=== PATIENT | female | born 1955 | race Two or more races ===

== ENCOUNTER 2025-10-17 23:56 | Emergency (ER) | payer MEDICARE, SELFPAY ==
[2025-10-17 23:58] VITALS: BMI 22.2
[2025-10-18 00:13] VITALS: BP 157/86; PULSE 91; RESP 18; TEMP 36.7; O2SAT 100
--- NOTE | 2025-10-18 00:27 | PD.EDRME ---
Rapid Medical Screening Exam RME Arrival date/time: 10/17/25 23:56 69F with no significant PMH presents to ED with N/V and epigastric pain after eating dinner. Chief Complaint: Nausea/Vomiting/Diarrhea Time Seen by Provider: 10/18/25 00:14 Vital signs: Vital Signs Temperature 98.1 F 10/18/25 00:13 Pulse Rate 91 10/18/25 00:13 Respiratory Rate 18 10/18/25 00:13 Blood Pressure 157/86 H 10/18/25 00:13 Pulse Oximetry (%) 100 10/18/25 00:13 Oxygen Delivery Method Room Air 10/18/25 00:13 Exam: Appears to be in pain. Actively having N/V. No ab tenderness. Clinical Impression: gastroenteritis vs food poisoning vs biliary disease vs pancreatitis
[2025-10-18 01:17] LABS: Basophils # (Auto) 0.1 Thou/mm3 (0.0-0.2); Basophils % (Auto) 1 % (0-2.5); Eosinophils # (Auto) 0.1 Thou/mm3 (0.0-0.5); Eosinophils % (Auto) 0 % (0-10); Hematocrit 42.1 % (36.0-46.0); Hemoglobin 13.7 g/dL (12.0-16.0); Immature Granulocytes Auto 0.04 Thou/mm3 (0.00-0.00); Lymphocytes # (Auto) 1.3 Thou/mm3 (1.0-4.8); Lymphocytes % (Auto) 10 % (10-50); Mean Corpuscular HGB Conc 32.5 g/dl (31.0-37.0); Mean Corpuscular Hemoglobin 29.7 pg (25.0-35.0); Mean Corpuscular Volume 91 fL (80-100); Monocytes # (Auto) 0.6 Thou/mm3 (0.0-0.8); Monocytes % (Auto) 5 % (0-12); Neutrophils # (Auto) 10.8 Thou/mm3 (1.8-7.7); Neutrophils % (Auto) 84 % (37-80); Nucleated Red Blood Cell # 0.00 Thou/mm3 (0.00-0.00); Nucleated Red Blood Cell % 0 /100 WBC (0); Platelet Count 343 Thou/mm3 (140-440); RDW Standard Deviation 42.5 fL (36.4-46.3); Red Blood Count 4.62 Miln/mm3 (4.00-5.20); White Blood Count 12.8 Thou/mm3 (3.6-11.0)
[2025-10-18] MEDS: SODIUM CHLORIDE 0.9% 1000 ML 1,000 ML 999 ML IV (01:27)
[2025-10-18] MEDS: ONDANSETRON INJ 2 MG/ML INJ 2 ML 4 MG IVP (01:31)
[2025-10-18 01:38] LABS: Alanine Aminotransferase 11 U/L (10-49); Albumin, Serum 4.9 gm/dL (3.4-4.8); Albumin/Globulin Ratio 2.0 (1.2-2.2); Alkaline Phosphatase 66 U/L (46-116); Anion Gap 10 (7-16); Aspartate Amino Transferase 21 U/L (0-34); BUN/Creatinine Ratio 15 Ratio (12-20); Bilirubin,Total 0.7 mg/dL (0.3-1.2); Blood Urea Nitrogen 9 mg/dL (9-23); Calcium 9.6 mg/dL (8.3-10.6); Calcium (Corrected) 9.6 mg/dL (8.5-10.1); Carbon Dioxide 30.9 mMol/L (20.0-31.0); Chloride 105 mMol/L (98-107); Creatinine (Component) 0.6 mg/dL (0.6-1.3); Estimated Creatinine Clearance 61.2 mL/min (>60); Globulin 2.4 gm/dL (2.3-3.5); Glucose 112 mg/dL (74-106); Lipase 30 U/L (12-53); Magnesium 2.1 mg/dL (1.6-2.6); Osmolality,Calculated 290 (275-295); Potassium 3.2 mMol/L (3.4-5.1); Sodium 146 mMol/L (136-145); Total Protein 7.3 gm/dL (5.7-8.2); eGFR > 60 See Note
--- NOTE | 2025-10-18 02:22 | EDNOTE_ITS ---
Nausea/Vomit./Diarrhea-RME/HPI General Chief complaint: Nausea/Vomiting/Diarrhea Stated complaint: VOMITING SINCE EATING Time Seen by Provider: 10/18/25 00:14 Arrival date/time: 10/17/25 23:56 RME / HPI RME / HPI Narrative: 10/17/25 23:56 69F with no significant PMH presents to ED with N/V and epigastric pain after eating dinner. DR. MELGAR MAIN ED EVALUATION: Patient presents with sudden onset nausea and associated multiple bouts of non- bloody emesis approximately 30 minutes s/p eating a home-prepared meal. Denies any diarrhea, although reports abdominal cramping. Other family members who consumed the same meal also experience gastric upset. PMH: Unremarkable for DM, Asthma, and HTN, No primary intestinal disorders PSH: Non-contributory Allergies: Social: No tobacco, Alcoholism, or illicit drug abuse Exam: Appears to be in pain. Actively having N/V. No ab tenderness. Impression: gastroenteritis vs food poisoning vs biliary disease vs pancreatitis Related Data Previous Rx's ?Medication ?Instructions ?Recorded acetaminophen 300 mg-codeine 15 mg 1 tab PO Q8H PRN pa in #20 tabs 10/18/25 tablet docusate sodium 100 mg capsule 100 mg PO BID #30 caps 10/18/25 (Colace) hydrocortisone acetate 25 mg 25 mg TX QDAY #12 ea 05/07 rectal suppository (Anusol-HC) loperamide 2 mg capsule (Imodium 2 mg PO TID diarrhea #10 caps 10/18/25 A-D) promethazine 12.5 mg tablet 12.5 mg PO TID PRN nausea and 10/18/25 vomiting #14 tabs Allergies Allergy/AdvReac Type Severity Reaction Status Date / Time No Known Allergies Allergy Verified 10/17/25 23:57 Review of Systems Review of Systems Systems Reviewed: All systems reviewed, normal except as documented ED Exam Narrative Physical exam: Patient underwent exam following treatment in ED which included IV fluid hydration, anti-emetics, and PPI therapy. Reports overall improvement. GEN. APPEARANCE: The patient is alert awake oriented X-3 under no distress, lying down comfortably, does not look ill/toxic. Patient has good eye contact. Patient is cooperative. VITALS: All vitals were reviewed and the pulse ox is 97%, which is normal according to my interpretation HEENT: Normocephalic, atraumatic and nontender. Pupils are equal and reactive. Oral mucosa is moist. NECK: Supple, nontender, no meningismus, no JVD. There is no thyromegaly and no lymphadenopathy. CHEST: Nontender on palpation no deformity and no crepitus. CARDIOVASCULAR: Heart regular rhythm, no murmur or gallop rub or extra beats. LUNGS: Clear to auscultation bilaterally with symmetrical chest rise. No laboring tachypnea or wheezing. No intercostal subcostal retraction. No rales and no rhonchi. ABDOMEN: Soft, flat, nontender to palpation, no guarding or rebound tenderness. There are no abnormal masses palpated. No pulsatile masses or bruits. Active and normal bowel sounds. EXTREMITIES: Normal inspection and palpation. No edema. No cyanosis. Patient is able to move all 4 extremities well SKIN: Warm and dry, no rashes noted. MUSCULOSKELETAL: No lumbar or midline bony tenderness. There is no CVA tenderness. No paraspinal muscle spasm or tenderness. NEURO: Cranial nerves II through XII grossly intact. There are no focal neurologic deficits noted. GCS is 15 PSYCHIATRIC: Patient is in normal mood and affect, cooperative. LYMPHATICS: No major lymphadenopathy noted. Course Quality Measures none Orders Category Date Time Status Blood glucose [Bedside Blood Glucose] NOW Care 10/17/25 23:59 Completed Insert IV NOW Care 10/18/25 00:26 Completed CBC Stat Lab 10/18/25 01:09 Completed CMP [Comprehensive Metabolic Panel] Stat Lab 10/18/25 01:09 Completed Lipase Stat Lab 10/18/25 01:09 Completed Mag [Magnesium] Stat Lab 10/18/25 01:09 Completed Ondansetron Inj [Zofran Inj] Med 10/18/25 00:27 Discontinued 4 mg IVP X1 ONE Pantoprazole Inj [Protonix Inj] Med 10/18/25 00:26 Discontinued 40 mg IVP X1 ONE Sodium Chloride 0.9% 1000 ml [Ns] 1,000 ml Med 10/18/25 00:26 Discontinued IV 999 mls/hr cefTRIAXone/D5w 1gm IV premix [Rocephin/D5w 1gm IV Med 10/18/25 02:02 Discontinued premix] 1 gm in 50 ml IV X1 Vital Signs Vital signs: Vital Signs Temperature 98.1 F 10/18/25 00:13 Pulse Rate 91 10/18/25 00:13 Respiratory Rate 18 10/18/25 00:13 Blood Pressure 157/86 H 10/18/25 00:13 Pulse Oximetry (%) 100 10/18/25 00:13 Oxygen Delivery Method Room Air 10/18/25 00:13 Nausea/Vomiting/Diarrhea MDM Narrative MDM Narrative:: Scribe Attestation: IMaritza, am scribing for and in the presence of Dr. Jackman. Provider Notation: Although this document has been carefully reviewed, there may still be some phonetic and other typographical errors. These errors are purely grammatical due to imperfections in the software program and should not be construed in any way to compromise the substance of the patient's medical care during this visit. Patient presents with sudden onset nausea and associated multiple bouts of non- bloody emesis approximately 30 minutes s/p eating a home-prepared meal. Denies any diarrhea, although reports abdominal cramping. Please see PE findings. Laboratory markers demonstrated WBC of 128, normal hemoglobin and platelet count with slight left shift without bandemia. Serum chemistries demonstrated a slightly low Potassium of 3.2, but were otherwise unremarkable. Patient was hydrated with normal saline to control volume deficit, treated with both anti- emetics, and PPI. With presentation, suspect food poisoning. Will recommend clear liquid diet, f/u with PMD with pprecautionary instructions issued. Patient data External records reviewed:: [facility] previous records (No prior ED record available for review) Clinical information provided by:: patient Social determinants that could affect healthcare access:: none Patient has the following chronic illnesses:: None reported How is presenting disease/condition affected by chronic disease/condition?: no chronic disease Evaluation data The following diagnostics were reviewed and interpreted by me:: lab results Lab and/or radiology exams considered but not ordered:: None Interpretation Summary: See MDM above Medications / Prescriptions Medications / Prescriptions considered but not ordered:: None Medication administrations:: Medication Administration History Discontinued Medications Sodium Chloride (Ns) 1,000 mls @ 999 mls/hr IV .Q1H1M ONE Stop: 10/18/25 01:26 Last Infusion: 10/18/25 02:05 Dose: Infused Documented By: Admin: 10/18/25 01:27 Dose: 999 mls/hr Documented By: SE Ceftriaxone Sodium/Dextrose (Rocephin/D5w 1gm Iv Premix) 1 gm in 50 mls @ 100 mls/hr IV X1 ONE Stop: 10/18/25 02:31 Last Admin: 10/18/25 02:20 Dose: Not Given Documented By: SE Non-Admin Reason: Cancelled by Provider Ondansetron HCl (Ondansetron Inj 2 Mg/Ml Inj 2 Ml) 4 mg IVP X1 ONE; Protocol Stop: 10/18/25 00:28 Last Admin: 10/18/25 01:31 Dose: 4 mg Documented By: SE Pantoprazole Sodium (Pantoprazole Inj 40 Mg Vial) 40 mg IVP X1 ONE Stop: 10/18/25 00:27 Last Admin: 10/18/25 01:32 Dose: 40 mg Documented By: SE See above if any Consultations Consultation(s) initiated? (list below): No Diagnosis Nausea Differential Diagnosis: food poisoning, gastroenteritis, clostridium difficile infection, drug-induced nausea and vomiting and dehydration Most likely diagnosis given after review of the tests above:: Food Poisoning, Dehydration Admission Indicated Admission indicated?: not indicated Explain why admission is indicated or not indicated:: Patient does not meet admission criteria Admission Request Was there a request for admission?: No Disposition Plan Disposition Plan: Discharge Discharge Attestation Discharge Attestation: The patient and all family members were given an opportunity to ask questions and understood the discharge instructions. Discharge instructions specifically effects, indications for sooner follow up or return to the emergency department, and the expected course of current diagnosis. Patient condition: Stable Discharge Plan Plan Patient Disposition: HOME (Self Care) Discharge Disposition comment: Stable Prescriptions/Referrals Prescriptions/Med Rec: New acetaminophen-codeine 300-15 mg tablet 1 tab PO Q8H PRN (Reason: pain) Qty: 20 0RF docusate sodium [Colace] 100 mg capsule 100 mg PO BID Qty: 30 0RF hydrocortisone acetate [Anusol-HC] 25 mg suppository 25 mg TX QDAY Qty: 12 1RF promethazine 12.5 mg tablet 12.5 mg PO TID PRN (Reason: nausea and vomiting) Qty: 14 0RF loperamide [Imodium A-D] 2 mg capsule 2 mg PO TID Qty: 10 0RF Problem List Clinical Impression: Food poisoning, Dehydration Impression comment: Food poisoning/dehydration Patient/Caregiver Discharge Instructions Discharge Activity: activity as tolerated Diet Instructions: Maintain clear liquid diet for 24 hours and advance as tolerated. Education Materials: ED Dehydration (Adult), ED Food Poison Or Gastroenteritis Additional Instructions: Maintain clear liquid diet for 24 hours and advance as tolerated. Medication as directed. Return for fever escalating abdominal pain persistent nausea and vomiting or worsening illness. Print Language: Vincentian Stand Alone Forms: Liza Award Info., Patient Portal Info Letter
[2025-10-18 03:01] VITALS: BP 136/76; PULSE 82; RESP 16; TEMP 36.7; O2SAT 97
== END 2025-10-18 03:10 | disposition home or self-care (01) ==
LOC: SERX 10-18 03:34
PROVIDERS: Physician Assistant; Emergency Provider Emergency Medicine; PCP Family Medicine
DX: E86.0 Dehydration (principal); A05.9 Bacterial foodborne intoxication, unspecified
CPT/HCPCS: 36415; 80053; 83690; 83735; 85025; 96374; 96375; 99283; J2405; J2470; J7030